=== PATIENT | male | born 1950 | race Caucasian/White ===

== ENCOUNTER → 2016-08-10 | Outpatient (CLI) | payer MEDICARE, OTHER ==
--- NOTE | 2016-08-10 16:20 | RAD ---
EXAM DESCRIPTION: Pelvis CLINICAL HISTORY: 65 years, Male, PAIN IN LEFT HIP COMPARISON: None. FINDINGS: No definite fracture or dislocation. Mild degenerative narrowing in both hips more on the left with spurring. Mild sacroiliac degenerative change more on the left. Multiple surgical clips over the pelvis. IMPRESSION: Mild degenerative change. No fracture Electronically signed by: Jeevan Brower MD 08/10/2016 4:20 PM CDT
--- NOTE | 2016-08-10 16:20 | RAD ---
EXAM DESCRIPTION: Knee,Left Complete CLINICAL HISTORY: 65 years, Male, PAIN IN LEFT KNEE COMPARISON: None. FINDINGS: No fracture or dislocation. Moderate narrowing patellofemoral joint space and medially. Some faint chondrocalcinosis suspected. Possible small joint effusion. IMPRESSION: No fracture or dislocation. Moderate degenerative change particularly patellofemoral and medially. Probable small joint effusion with chondrocalcinosis Electronically signed by: Jeevan Brower MD 08/10/2016 4:19 PM CDT
== END | disposition home or self-care (01) ==
LOC: RAD 09:01
PROVIDERS: ATTEND Orthopaedic Surgery
DX: M25.562 Pain in left knee (principal); M25.552 Pain in left hip

== ENCOUNTER → 2016-08-26 | Outpatient (CLI) | payer MEDICARE, OTHER | END | disposition home or self-care (01) | LOC: LAB.O 08:57 | PROVIDERS: ATTEND Orthopaedic Surgery | DX: Z79.899 Other long term (current) drug therapy (principal); Z79.891 Long term (current) use of opiate analgesic ==

== ENCOUNTER → 2016-11-12 | Outpatient (CLI) | payer MEDICARE, OTHER | END | disposition home or self-care (01) | LOC: LAB.O 08:15 | PROVIDERS: ATTEND Orthopaedic Surgery | DX: Z79.891 Long term (current) use of opiate analgesic (principal) ==

== ENCOUNTER → 2017-01-25 | Outpatient (CLI) | payer MEDICARE, OTHER | END | disposition home or self-care (01) | LOC: YCFC.O 11:27 | PROVIDERS: ATTEND Anesthesiology Pain Medicine | DX: Z79.891 Long term (current) use of opiate analgesic (principal) ==

== ENCOUNTER 2017-02-15 05:46 | Day surgery (SDC) | payer MEDICARE, OTHER ==
[2017-02-15] MEDS ORDERED: methylPREDNISolone ACETATE 80 MG/ML VIAL ONE (11:37)
[2017-02-15] MEDS ORDERED: SODIUM CHLORIDE 0.9% 10 ML VIAL ONE (11:37)
[2017-02-15] MEDS ORDERED: LIDOCAINE 1% MPF 5 ML VIAL ONE (11:37)
[2017-02-15] MEDS ORDERED: SODIUM BICARBONATE VIAL 50 MEQ/50 ML VIAL ONE (11:37)
[2017-02-15 14:17] VITALS: BP 161/89; TEMP 97.3; O2SAT 96
== END 2017-02-15 14:02 | disposition home or self-care (01) ==
LOC: AMB 05:46
PROVIDERS: ATTEND Anesthesiology Pain Medicine
DX: M51.14 Intervertebral disc disorders with radiculopathy, thoracic region (principal); J45.909 Unspecified asthma, uncomplicated; E11.9 Type 2 diabetes mellitus without complications; E78.00 Pure hypercholesterolemia, unspecified; Z79.84 Long term (current) use of oral hypoglycemic drugs; Z79.899 Other long term (current) drug therapy
CPT/HCPCS: 62321; 76000; J1030

== ENCOUNTER → 2017-03-25 | Outpatient (CLI) | payer MEDICARE, OTHER | END | disposition home or self-care (01) | LOC: GMAB 10:54 | PROVIDERS: ATTEND Family Medicine | DX: Z12.5 Encounter for screening for malignant neoplasm of prostate (principal); I10 Essential (primary) hypertension | CPT/HCPCS: 84443; G0103 ==

== ENCOUNTER → 2017-07-02 | Outpatient (CLI) | payer MEDICARE, OTHER ==
--- NOTE | 2017-07-03 09:13 | RAD ---
EXAM DESCRIPTION: Shoulder,Right 2 or More Views CLINICAL HISTORY: SHOULDER PN COMPARISON: None Available. TECHNIQUE: 4 views of the right shoulder. FINDINGS: There is adequate internal and external rotation. Normal alignment on transaxillary and transscapular Y views. Plate and screws are seen in the lower C-spine. There is no fracture or dislocation. Degenerative changes are seen at the right AC joint with prominent inferior osteophyte formation. Acromiohumeral distance measures 1.3 cm. No focal bone lesion. IMPRESSION: Negative for fracture or dislocation. Degenerative changes at the acromioclavicular joint. Electronically signed by: Atilio Karmer MD 07/03/2017 9:11 AM CDT
== END ==
LOC: RAD 08:21
PROVIDERS: ATTEND Orthopaedic Surgery
DX: M25.511 Pain in right shoulder (principal)

== ENCOUNTER → 2017-07-07 | Outpatient (CLI) | payer MEDICARE, OTHER ==
--- NOTE | 2017-07-07 11:53 | MRI ---
MRI right shoulder without contrast INDICATION: Shoulder pain rotator cuff tear initial encounter TECHNIQUE: Noncontrast MR imaging right shoulder standard protocol FINDINGS: There is a full-thickness retracted tear of the supraspinatus tendon retracted to the medial humeral head level. There is minimal bursal surface remaining in the infraspinatus but there is a nearly full-thickness articular surface and interstitial tear with delamination. Prominent joint fluid synovitis and bursal fluid. Moderate hypertrophic AC joint osteoarthrosis. Mild glenohumeral osteoarthrosis with diffuse labral degeneration/fraying. Generalized muscle atrophy is grade 2. There is also a thin lax appearing subscapularis indicating high-grade partial to complete rupture. There is a long head bicep longitudinal split tear high-grade partial to complete. There is a small focus of intermediate signal intensity in the scapular spine/acromion axial series 301 image 19. This has nonaggressive features. IMPRESSION: Full-thickness retracted tear supraspinatus tendon with nearly full-thickness delaminating tear of the infraspinatus Lax appearing subscapularis indicating probable full-thickness detachment with diffuse background partial tear Moderate hypertrophic AC joint arthrosis Large volume joint fluid bursal fluid and synovitis Generalized grade 2 muscle atrophy Long head bicep tear as above Electronically signed by: Franc Salas MD 07/07/2017 11:51 AM CDT
== END | disposition home or self-care (01) ==
LOC: MRI 09:00
PROVIDERS: ATTEND Orthopaedic Surgery
DX: M75.101 Unspecified rotator cuff tear or rupture of right shoulder, not specified as traumatic (principal)

== ENCOUNTER → 2017-07-09 | Outpatient (CLI) | payer MEDICARE, OTHER | END | disposition home or self-care (01) | LOC: LAB.O 09:29 | PROVIDERS: ATTEND Orthopaedic Surgery | DX: Z79.899 Other long term (current) drug therapy (principal) ==

== ENCOUNTER 2017-07-31 22:19 | Emergency (ER) | payer MEDICARE, OTHER ==
[2017-07-31] MEDS ORDERED: CLINDAMYCIN IV 900MG 900 MG in PREMIX BAG 1 BAG IVPB ONE (22:38)
[2017-07-31] MEDS ORDERED: fentaNYL CITRATE INJ 50 MCG/ML AMP IV ONE (22:39)
--- NOTE | 2017-07-31 22:43 | ED.PDOC ---
History of Present Illness - General Chief Complaint: Skin/Abrasion/Tear Stated Complaint: abcess to lower leg Time Seen by Provider: 07/31/17 22:23 Source: patient Exam Limitations: no limitations Additional Information: 66 YEAR OLD WHITE MALE HERE FOR EVALUATION OF PAINFUL SWELLING ON THE DISTAL LEFT LEG IT ALL STARTED AFTER HE GOT KICKED BY HIS HORSE ON THE July HE HAD BEEN SEEN BY HIS PHYSICIAN SINCE THEN ON ANTIBIOTIC DOXYCYCLINE NOW HE HAS RED 5X 4 CM PAINFUL SWELLING THAT HAS BEEN DRAINING IT HAS A NECROTIC CENTER WITH A SCAB OVER IT - History of Present Illness Severity: moderate Improving Factors: nothing Worsening Factors: nothing Associated Symptoms: denies symptoms Allergies/Adverse Reactions: Allergies NO KNOWN ALLERGY Allergy (Unverified 01/27/16 07:26) Home Medications: Ambulatory Orders Atorvastatin Calcium [Lipitor] 20 mg PO DAILY 05/14/14 Cyclobenzaprine HCl 10 mg PO PRN 05/14/14 HYDROcodone 7.5MG/APAP 325MG [[place] 7.5/325] 1 - 2 tab PO BID 05/14/14 Hydrochlorothiazide 12.5 mg PO DAILY 05/14/14 Cinnamon 1,000 mg PO DAILY 02/07/16 Docusate Sodium [Stool Softener] 100 mg PO BID 02/07/16 Fenofibrate 160 mg PO DAILY 02/07/16 Gabapentin [Neurontin] 300 mg PO PRN 02/07/16 Garlic [Odorless Garlic] 1,000 mg PO DAILY 02/07/16 Multiple Vitamins W/ Minerals [Centrum Adults] 1 tab PO DAILY 02/07/16 Benson-3 Fatty Acids [Fish Oil] 1 cap PO DAILY 02/07/16 Pregabalin [Lyrica] 150 mg PO DAILY 02/07/16 amLODIPine BESYLATE [Norvasc] 5 mg PO DAILY 02/07/16 metFORMIN HCL [Glucophage] 100 mg PO BID 02/07/16 Pantoprazole Tablet [Protonix] 40 mg PO DAILY 03/16/16 Acetamin W/Cod #3 Tab [Tylenol w/CODEINE #3] 1 ea PO Q6HR PRN #40 tab 07/31/17 Clindamycin HCl [Cleocin] 300 mg PO Q6H #40 cap 07/31/17 Past Medical History (General) - Patient Medical History Hx Stroke: No Hx Dementia: No Hx Asthma: No Hx of COPD: No Hx Cardiac Disorders: No Hx Congestive Heart Failure: No Hx Pacemaker: No Hx Hypertension: Yes Hx Thyroid Disease: No Hx Diabetes: Yes - FSBS 129 Hx Renal Disease: No Hx MRSA: No - Vaccination History Hx Tetanus, Diphtheria Vaccination: No Hx Influenza Vaccination: No Hx Pneumococcal Vaccination: No - Social History Hx Tobacco Use: No Hx Chewing Tobacco Use: No Hx Alcohol Use: Yes - 2-3 mixed drinks daily Hx Substance Use: No Hx Substance Use Treatment: No Hx Physical Abuse: No Hx Emotional Abuse: No Hx Suspected Abuse: No - Female History Patient : No Family Medical History - Family History Mother Family History: No Known Living Status: Unknown Hx Family Asthma: No Physical Exam - Physical Exam Eyes, Ears, Nose, Throat Exam: PERRL/EOMI Neck: non-tender Cardiovascular/Chest: normal peripheral pulses, regular rate, rhythm, no edema, no gallop, no JVD Respiratory: chest non-tender, lungs clear, normal breath sounds, no respiratory distress Gastrointestinal/Abdominal: normal bowel sounds, non tender, soft, no organomegaly, no pulsatile mass Extremity: normal range of motion, non-tender, normal inspection 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 Copy, Patient Portal Self Enrollment Instructions: DI for Abrasion Referrals: Tate Gonzalez MD [Primary Care Provider] - 1-2 Weeks Prescriptions: Acetamin W/Cod #3 Tab [Tylenol w/CODEINE #3] 1 ea PO Q6HR PRN #40 tab PRN Reason: Mild To Moderate Pain Clindamycin HCl [Cleocin] 300 mg PO Q6H #40 cap Home Medications: Ambulatory Orders Atorvastatin Calcium [Lipitor] 20 mg PO DAILY 05/14/14 Cyclobenzaprine HCl 10 mg PO PRN 05/14/14 HYDROcodone 7.5MG/APAP 325MG [[place] 7.5/325] 1 - 2 tab PO BID 05/14/14 Hydrochlorothiazide 12.5 mg PO DAILY 05/14/14 Cinnamon 1,000 mg PO DAILY 02/07/16 Docusate Sodium [Stool Softener] 100 mg PO BID 02/07/16 Fenofibrate 160 mg PO DAILY 02/07/16 Gabapentin [Neurontin] 300 mg PO PRN 02/07/16 Garlic [Odorless Garlic] 1,000 mg PO DAILY 02/07/16 Multiple Vitamins W/ Minerals [Centrum Adults] 1 tab PO DAILY 02/07/16 Benson-3 Fatty Acids [Fish Oil] 1 cap PO DAILY 02/07/16 Pregabalin [Lyrica] 150 mg PO DAILY 02/07/16 amLODIPine BESYLATE [Norvasc] 5 mg PO DAILY 02/07/16 metFORMIN HCL [Glucophage] 100 mg PO BID 02/07/16 Pantoprazole Tablet [Protonix] 40 mg PO DAILY 03/16/16 Acetamin W/Cod #3 Tab [Tylenol w/CODEINE #3] 1 ea PO Q6HR PRN #40 tab 07/31/17 Clindamycin HCl [Cleocin] 300 mg PO Q6H #40 cap 07/31/17
[2017-07-31 22:59] VITALS: TEMP 99.1; O2SAT 96
[2017-07-31] MEDS ORDERED: CLINDAMYCIN IV 900MG 50 ML IVPB ONE (23:07)
[2017-07-31] MEDS ORDERED: LIDOCAINE 1% 10 ML VIAL INJ ONE (23:17)
[2017-07-31] MEDS ORDERED: POVIDONE IODINE 10 % 15 ML UD TOP ONE (23:21)
[2017-07-31] MEDS ORDERED: NEOMYCIN-BACITRACIN-POLYMYXIN 0.9 GM UD TOP ONE (23:27)
[2017-08-01 00:12] VITALS: BP 124/70
== END 2017-08-01 00:12 | disposition home or self-care (01) ==
LOC: ER 22:19
DX: S80.12XA Contusion of left lower leg, initial encounter (principal); I10 Essential (primary) hypertension; E11.9 Type 2 diabetes mellitus without complications; Z79.84 Long term (current) use of oral hypoglycemic drugs; X58.XXXA Exposure to other specified factors, initial encounter; Y92.9 Unspecified place or not applicable
CPT/HCPCS: 36415; 80048; 85025; 87070; J3010; J3490

== ENCOUNTER → 2018-05-26 | Outpatient (CLI) | payer MEDICARE, OTHER | LOC: GMAE 10:43 | PROVIDERS: ATTEND Family Medicine | DX: I10 Essential (primary) hypertension (principal); Z12.5 Encounter for screening for malignant neoplasm of prostate | CPT/HCPCS: 84443; G0103 ==

== ENCOUNTER → 2018-07-28 | Outpatient (CLI) | payer MEDICARE, OTHER ==
--- NOTE | 2018-07-28 19:31 | US ---
EXAM DESCRIPTION: Renal Arteries. Ultrasound. CLINICAL HISTORY: HYPERTENSION COMPARISON: None. TECHNIQUE: Transcutaneous scanning: Doppler systolic and diastolic measurements of the abdominal aorta, renal arteries, intra renal arteries, and renal veins. Technically difficult study due to patient large body habitus. FINDINGS: PSV (cm/sec): Aorta: 99 Right renal artery: Only seen distally. 53.1 Left renal artery: Only seen distally, 51.5 EDV (cm/sec): Right renal artery: 14.8 Left renal artery: 18.3 Renal veins: Not well seen. IVC: Normal caliber. Intrarenal RI's: Superior Right: 0.71 Left: 0.61. Middle Right: 0.74 Left: 0.60. Inferior Right: 0.76 Left: 0.64 Renal Aortic Ratio: Right RAR = RRA PSV/Aortic PSV = 53.1 /99= 0.54. Left RAR = LRA PSV/Aortic PSV = 51.5/99 = 0.52. End Diastolic Ratio: Right EDR = RRA EDV/RRA PSV = 14.8/53.1 = 0.269. Left EDR = LRA EDV/LRA PSV = 18.3/51.5= 0.355. Other: Technically difficult visualization of the small vessels. IMPRESSION: 1. Technically difficult study due to patient large body habitus. Bilateral renal arteries were only seen distally. Renal aortic ratios indicate less than critical percentage of renal artery stenosis (less than 50%). 2. Resistive indices in the right renal artery branches indicate renal vascular disease, but end diastolic value in the right kidney greater than 0.25. Resistive indices in the left renal artery branches and left kidney in diastolic values are in the normal range. Electronically signed by: Tanner Johnson MD 07/28/2018 7:29 PM CDT
== END ==
LOC: US 09:30
PROVIDERS: ATTEND Family Medicine
DX: I10 Essential (primary) hypertension (principal)

== ENCOUNTER → 2018-10-28 | Outpatient (CLI) | payer MEDICARE, OTHER ==
--- NOTE | 2018-10-28 17:08 | US ---
EXAM DESCRIPTION: Liver: ULTRASOUND. CLINICAL HISTORY: ELEVATED LFTs COMPARISON: None. None. TECHNIQUE: Transabdominal scannin-dimensional and Doppler modes.. Technically difficult study due to patient body habitus. FINDINGS: Gallbladder: Cholecystectomy. No fluid in the gallbladder fossa. Right upper quadrant Non-tender with transducer pressure. Common bile duct: caliber not seen . Liver: Diffuse increased echogenicity echogenicity; dense liver and difficult to visualize posterior organ. Contour liver capsule smooth where seen. No fluid around the liver. Intrahepatic biliary ducts normal caliber. portal vein. Not well visualized. Long axis right lobe difficult to measure. Pancreas: normal size and echogenicity. Duct not seen. Right kidney: long axis measures 11.1 cm. Limited visualization. Normal cortical echogenicity. Normal cortical thickness. No hydronephrosis IMPRESSION: Limited study due to patient body habitus. Diffuse steatosis of the liver which is enlarged but cannot be measured. Intrahepatic ducts and vascularity not well seen. Smooth capsule with no ascites. Prior cholecystectomy. Common bile duct not seen. Nontender with transducer pressure. Right kidney and pancreas grossly normal. Consider radionuclide hepatobiliary imaging and/or CT scan of the abdomen and pelvis with IV contrast. Electronically signed by: Tanner Johnson MD 10/28/2018 5:07 PM CDT
== END ==
LOC: RESP 10:23
PROVIDERS: ATTEND Family Medicine
DX: K76.0 Fatty (change of) liver, not elsewhere classified (principal); R94.31 Abnormal electrocardiogram [ECG] [EKG]; Z90.49 Acquired absence of other specified parts of digestive tract

== ENCOUNTER → 2019-08-24 | Outpatient (CLI) | payer MEDICARE, OTHER | LOC: GMAE 11:43 | PROVIDERS: ATTEND Family Medicine | DX: Z12.5 Encounter for screening for malignant neoplasm of prostate (principal); R94.6 Abnormal results of thyroid function studies; E11.9 Type 2 diabetes mellitus without complications; I10 Essential (primary) hypertension; E78.2 Mixed hyperlipidemia | CPT/HCPCS: 84443; G0103 ==